=== PATIENT | female | born 1990 | race African-American/Black ===

== ENCOUNTER 2020-09-04 11:08 | Outpatient (CLI) | payer OTHER ==
[~2020-09-04] VITALS: Ht 157.5 cm; Wt 69.5 kg
[2020-09-04] MEDS ORDERED: PREN1TAB60 PO (11:23)
[2020-09-04] MEDS ORDERED: FERR324T5 PO (11:24)
[2020-09-04 11:49] VITALS: BP 115/61
== END 2020-09-04 11:40 | disposition home or self-care (01) ==
LOC: LDOP 11:08
PROVIDERS: ATTEND Obstetrics & Gynecology
DX: O26.893 Other specified pregnancy related conditions, third trimester (principal); R10.9 Unspecified abdominal pain; Z3A.39 39 weeks gestation of pregnancy
CPT/HCPCS: 59025

== ENCOUNTER 2020-09-07 20:35 | Inpatient (IN) | payer OTHER ==
[~2020-09-07] VITALS: Ht 160 cm; Wt 69.5 kg
[~2020-09-07 20:35] MED LIST: FERR324T5 PO; PREN1TAB60 PO
[2020-09-07] MEDS ORDERED: LIDOCAINE 1%, 20ML ONE (20:58)
[2020-09-07] MEDS ORDERED: NEWBORN KIT ONE (20:58)
[2020-09-07] MEDS ORDERED: MISOPROSTOL 200 MCG TABLET ONE (20:58)
[2020-09-07] MEDS ORDERED: LACTATED RINGERS 1,000 ML IV SCH ×2 (21:00→22:30)
[2020-09-07] MEDS ORDERED: OXYTOCIN 30U/ 0.9% NaCL 500ML 500 ML IV ONE (21:00)
[2020-09-07] MEDS ORDERED: FENTANYL PF 100 MCG/2ML IV PRN (21:00)
[2020-09-07] MEDS ORDERED: ONDANSETRON 2MG/ML, 2ML IVPush PRN ×2 (21:00→22:30)
[2020-09-07] MEDS ORDERED: CALCIUM CARBONATE 500 MG TAB.CHEW PO PRN (21:00)
[2020-09-07] MEDS ORDERED: D5%-LACTATED RINGERS 1,000 ML IV SCH (21:00)
[2020-09-07] MEDS ORDERED: SODIUM CITRATE/CITRIC ACID 30 ML UDC PO PRN (21:00)
[2020-09-07] MEDS ORDERED: METOCLOPRAMIDE 5 MG/ML, 2ML IVPush PRN (21:00)
[2020-09-07] MEDS ORDERED: FENTANYL PF 100 MCG/2ML IVPush PRN (21:00)
[2020-09-07] MEDS ORDERED: TERBUTALINE 1 MG/ML, 1ML IVPush PRN (21:00)
[2020-09-07] MEDS ORDERED: TERBUTALINE 1 MG/ML, 1ML SQ PRN (21:00)
[2020-09-07 21:25] LABS: BASOPHILS % (AUTO) 0 % (0-1); EOSINOPHILS % (AUTO) 0 % (1-7); LYMPHOCYTES % (AUTO) 12 % (22-44); MEAN CORPUSCULAR HEMOGLOBIN 32.2 pg (27.0-34.8); MEAN CORPUSCULAR HGB CONC 33.9 g/dL (32.4-35.8); MEAN PLATELET VOLUME 8.2 fL (7.4-10.4); MONOCYTES % (AUTO) 4 % (2-9); NEUTROPHILS % (AUTO) 83 % (42-75); PLATELET COUNT 234 x10^3/uL (130-400); RED CELL DISTRIBUTION WIDTH 13.4 % (9.6-15.2)
[2020-09-07] MEDS ORDERED: SODIUM CITRATE/CITRIC ACID 15 ML UDC ONE (21:29)
[2020-09-07 21:31] LABS: MD NO
[2020-09-07] MEDS ORDERED: BUPIVACAINE 0.25% ONE (22:09)
[2020-09-07] MEDS ORDERED: DIPHENHYDRAMINE 50 MG/ML, 1ML IVPush PRN (22:30)
[2020-09-07] MEDS ORDERED: LACTATED RINGERS 1,000 ML IVBOLUS PRN ×2 (22:30)
[2020-09-07] MEDS ORDERED: EPHEDRINE 50 MG/ML, 1ML IVPush PRN (22:30)
[2020-09-07] MEDS ORDERED: NALOXONE 0.4 MG/ML, 1ML IVPush PRN (22:30)
[2020-09-07] MEDS ORDERED: FENTANYL/BUPIV./NS/PF 250 ML EPIDCONT SCH ×2 (22:30)
[2020-09-08] MEDS ORDERED: LIDOCAINE/MPF 2%-EPI 1:200K, 20 ML ONE (02:25)
[2020-09-08] MEDS ORDERED: morphine SULFATE/PF 0.5 MG/ML, 10ML ONE (02:32)
[2020-09-08] MEDS ORDERED: KETOROLAC 30 MG/1 ML ONE (02:33)
[2020-09-08] MEDS ORDERED: OXYTOCIN 10 UNITS/ML, 1ML ONE (02:33)
[2020-09-08] MEDS ORDERED: SODIUM CHLORIDE 0.9% PF 10ML ONE (02:33)
[2020-09-08] MEDS ORDERED: CEFAZOLIN 1,000 MG ONE (02:33)
[2020-09-08] MEDS ORDERED: DEXAMETHASONE 4 MG/ML, 1ML ONE (02:33)
[2020-09-08] MEDS ORDERED: ONDANSETRON 2MG/ML, 2ML ONE (02:33)
[2020-09-08] MEDS ORDERED: ACETAMINOPHEN 325 MG TABLET PO PRN ×2 (03:30)
[2020-09-08] MEDS ORDERED: SIMETHICONE 80 MG CHEW TAB PO PRN (03:30)
[2020-09-08] MEDS ORDERED: KETOROLAC 30 MG/1 ML IV SCH (03:30)
[2020-09-08] MEDS: LACTATED RINGERS 1,000 ML IV SCH ×4 (03:30→13:30)
[2020-09-08] MEDS ORDERED: MISOPROSTOL 200 MCG TABLET PR PRN (03:30)
[2020-09-08] MEDS: OXYTOCIN 30U/ 0.9% NaCL 500ML 500 ML IV SCH ×2 (03:30→13:30)
[2020-09-08] MEDS ORDERED: MEPERIDINE/PF 50 MG/ML ONE (03:40)
[2020-09-08 06:00] VITALS: BP 120/73
[2020-09-08 07:00] VITALS: BP 114/68
[2020-09-08] MEDS ORDERED: NALOXONE 0.4 MG/ML, 1ML IV PRN (11:00)
[2020-09-08] MEDS ORDERED: DIPHENHYDRAMINE 50 MG/ML, 1ML IV PRN (11:00)
[2020-09-08] MEDS ORDERED: ONDANSETRON 2MG/ML, 2ML IVPush PRN (11:00)
[2020-09-08] MEDS ORDERED: OXYcodone/APAP 5/325MG TABLET PO PRN (11:00)
[2020-09-08] MEDS ORDERED: MORPHINE SULFATE 4 MG/ML, 1ML IV PRN (11:00)
[2020-09-08] MEDS ORDERED: EPHEDRINE 50 MG/ML, 1ML IVPush PRN (11:00)
[2020-09-08] MEDS ORDERED: NO SEDATIVES, TRANQUILIZERS OR ANTIEMETICS XX SCH (11:00)
[2020-09-08 11:43] LABS: MEAN CORPUSCULAR HEMOGLOBIN 32.2 pg (27.0-34.8); MEAN CORPUSCULAR HGB CONC 33.8 g/dL (32.4-35.8); MEAN PLATELET VOLUME 7.9 fL (7.4-10.4); PLATELET COUNT 193 x10^3/uL (130-400); RED BLOOD COUNT 3.06 x10^6/uL (3.82-5.3); RED CELL DISTRIBUTION WIDTH 13.5 % (9.6-15.2)
[2020-09-08 12:09] LABS: MD YES
[2020-09-08 12:11] LABS: BAND#(MANUAL) 1.29 x10^3/uL; BANDS%(MANUAL) 11 % (0-7); LYMPH#(MANUAL) 0.94 x10^3/uL (1-3.4); LYMPHS% (MANUAL) 8 % (22-44); MONOS#(MANUAL) 0.12 x10^3/uL (0.3-2.7); MONOS% (MANUAL) 1 % (2-9); SEG#(MANUAL) 9.36 x10^3/uL (1.8-6.8); SEGS% (MANUAL) 80 % (42-75)
[2020-09-08 12:14] LABS: <PLATELET ESTIMATE> ADEQUATE; <PLT MORPHOLOGY> NORMAL PLT MORPH; <RBC MORPHOLOGY> NORMAL
[2020-09-08 12:21] VITALS: BP 96/61
[2020-09-08] MEDS: PRENATAL VIT/IRON/FA 1 EACH TABLET PO SCH (15:07)
[2020-09-08] MEDS: KETOROLAC 30 MG/1 ML IVPush SCH ×2 (15:07→21:00)
[2020-09-08] MEDS: DOCUSATE 100 MG CAPSULE PO PRN (15:07)
[2020-09-08 16:26] VITALS: BP 94/60
[2020-09-08 20:20] VITALS: BP 96/60
[2020-09-09 00:30] VITALS: BP 98/59
[2020-09-09] MEDS: OXYcodone/APAP 5/325MG TABLET PO PRN ×2 (01:41→10:37)
[2020-09-09] MEDS: IBUPROFEN 600 MG TABLET PO PRN ×2 (01:41→07:56)
[2020-09-09] MEDS ORDERED: KETOROLAC 30 MG/1 ML IV SCH (05:00)
[2020-09-09 07:41] VITALS: BP 91/53
[2020-09-09] MEDS: DOCUSATE 100 MG CAPSULE PO PRN (07:56)
[2020-09-09] MEDS: PRENATAL VIT/IRON/FA 1 EACH TABLET PO SCH (07:56)
[2020-09-09] MEDS ORDERED: IBUP-1222 PO (08:57)
[2020-09-09] MEDS ORDERED: OXYC1TAB14 PO (08:58)
[2020-09-09] MEDS ORDERED: DIPH,PERTUSS(ACELL),TET VAC/PF NC IM-VACC ONE ×2 (10:23→11:30)
== END 2020-09-09 10:43 | disposition home or self-care (01) | DRG 788 ==
LOC: LDOP 20:35 → LDIP 20:52 → 2NW 09-08 05:40
PROVIDERS: ADMIT Obstetrics & Gynecology; ATTEND Obstetrics & Gynecology
PROC: 10D00Z1 Extraction of Products of Conception, Low, Open Approach (ICD-10-PCS; principal; 2020-09-08)
PROC: 10H07YZ Insertion of Other Device into Products of Conception, Via Natural or Artificial Opening (ICD-10-PCS; 2020-09-08)
PROC: 3E0E7KZ Introduction of Other Diagnostic Substance into Products of Conception, Via Natural or Artificial Opening (ICD-10-PCS; 2020-09-08)
DX: O77.0 Labor and delivery complicated by meconium in amniotic fluid (principal); Z37.0 Single live birth; O36.8130 Decreased fetal movements, third trimester, not applicable or unspecified; O62.2 Other uterine inertia; O33.9 Maternal care for disproportion, unspecified; Z20.822 Contact with and (suspected) exposure to COVID-19; Z3A.40 40 weeks gestation of pregnancy
CPT/HCPCS: 36415; 85025; 86592; 86850; 86900; 87635; 88307; 90715; G0378; J0690; J1100; J1885; J2274; J2405; J2590; J3010; J7120